=== PATIENT | female | born 1950 | race Caucasian/White ===

== ENCOUNTER 2017-02-19 07:03 | Day surgery (SDC) | payer OTHER ==
--- NOTE | ~2017-02-19 | EGD ---
EGD REPORT [facility] [address] [address] NAME: CLAIRE GROVES : [birth year] STATUS : REG [facility]#: [id number] AGE: 66 ADM/REG DATE : 02/19/17 MR#: [id number] REPORT SERV DATE: 02/19/17 DICTATED BY: QUINCY CROUCH DATE: 02/19/17 REPORT STATUS : Draft [facility] DATE: 02/19/17 Endoscopy Center Patient Name: Claire Groves Date of : 1950 Attending MD: QUINCY CROUCH MD Procedure Date No Time: 02/19/2017 Procedure: Colonoscopy Indications: Surveillance: Personal history of adenomatous polyps on last colonoscopy 3 years ago Referring MD: JOSE VINCENT Medicines: Propofol per Anesthesia Complications: No immediate complications. Procedure: Pre-Anesthesia Assessment: - ASA Grade Assessment: III - A patient with severe systemic disease. After I obtained informed consent, the scope was passed under direct vision. Throughout the procedure, the patient's blood pressure, pulse, and oxygen saturations were monitored continuously. The CF [id number] was introduced through the anus and advanced to the terminal ileum. The colonoscopy was performed without difficulty. The patient tolerated the procedure well. The quality of the bowel preparation was good. Findings: The perianal and digital rectal examinations were normal. The terminal ileum appeared normal. The colon (entire examined portion) appeared normal. A sessile polyp was found in the cecum. The polyp was 4 mm in size. The polyp was removed with a cold biopsy forceps. Resection and retrieval were complete. Two sessile polyps were found in the ascending colon. The polyps were 2 to 4 mm in size. These polyps were removed with a cold biopsy forceps. Resection and retrieval were complete. A sessile polyp was found in the transverse colon. The polyp was 3 mm in size. The polyp was removed with a cold biopsy forceps. Resection and retrieval were complete. A sessile polyp was found in the descending colon. The polyp was 3 mm in size. The polyp was removed with a cold biopsy forceps. Resection and retrieval were complete. Multiple small and large-mouthed diverticula were found in the recto-sigmoid colon and in the sigmoid colon. Non-bleeding internal hemorrhoids were found during retroflexion and were mild, small and Grade I (internal hemorrhoids that do not prolapse). EGD REPORT [address] [place]. [address] NAME: CLAIRE GROVES : [birth year] STATUS : [facility]#: [id number] AGE: 66 ADM/REG DATE : 02/19/17 MR#: [id number] REPORT SERV DATE: 02/19/17 DICTATED BY: QUINCY CROUCH DATE: 02/19/17 REPORT STATUS : Draft TRANSCRIBED BY: [email or web address] DATE: 02/19/17 Impression: - The examined portion of the ileum was normal. - The entire examined colon is normal. - One 4 mm polyp in the cecum. Resected and retrieved. - Two 2 to 4 mm polyps in the ascending colon. Resected and retrieved. - One 3 mm polyp in the transverse colon. Resected and retrieved. - One 3 mm polyp in the descending colon. Resected and retrieved. - Diverticulosis in the recto-sigmoid colon and in the sigmoid colon. - Non-bleeding internal hemorrhoids. Recommendation: - Patient has a contact number available for emergencies. The signs and symptoms of potential delayed complications were discussed with the patient. Return to normal activities tomorrow. Written discharge instructions were provided to the patient. - diet is clear liquid today, full liquid tomorrow, soft mushy food the next day, and resume usual diet the day after that. - Continue present medications. - Repeat colonoscopy in 3 - 5 years for surveillance based on pathology results. - Return to my office as previously scheduled. - Discharge patient to home. Procedure Code(s): --- Professional --- 62373, Colonoscopy, flexible, proximal to splenic flexure; with biopsy, single or multiple Diagnosis Code(s): --- Professional --- K64.0, First degree hemorrhoids K57.30, Diverticulosis of large intestine without perforation or abscess without bleeding D12.0, Benign neoplasm of cecum D12.2, Benign neoplasm of ascending colon D12.3, Benign neoplasm of transverse colon D12.4, Benign neoplasm of descending colon Z86.010, Personal history of colonic polyps CPT copyright 2013 [employer]. All rights reserved. The codes documented in this report are preliminary and upon belt notcher review may be revised to meet current compliance requirements. EGD REPORT [facility] [address] [address] NAME: CLAIRE GROVES : [birth year] STATUS : [facility]#: [id number] AGE: 66 ADM/REG DATE : 02/19/17 MR#: [id number] REPORT SERV DATE: 02/19/17 DICTATED BY: QUINCY CROUCH DATE: 02/19/17 REPORT STATUS : Draft TRANSCRIBED BY: [employer] [facility] DATE: 02/19/17 Quincy Crouch MD QUINCY CROUCH MD 02/19/2017 11:29 AM This report has been signed electronically. Number of Addenda: 0 Note Initiated On: 02/19/2017 8:41 AM Scope Withdrawal Time 0 hours 24 minutes 49 seconds [address] [id number]
--- NOTE | ~2017-02-19 | EGD ---
EGD REPORT [facility] [address] [address] NAME: CLAIRE GROVES : [birth year] STATUS : REG [facility] [place] [place] PAT#: [id number] AGE: 66 ADM/REG DATE : 02/19/17 MR#: [id number] REPORT SERV DATE: 02/19/17 DICTATED BY: QUINCY CROUCH DATE: 02/19/17 REPORT STATUS : Draft [facility]: [facility] DATE: 02/19/17 Endoscopy Center Patient Name: Claire Groves Date of : 1950 Attending MD: QUINCY CROUCH MD Procedure Date No Time: 02/19/2017 Procedure: Upper GI endoscopy Indications: Epigastric abdominal pain, Dysphagia, Heartburn Referring MD: JOSE VINCENT Medicines: Propofol per Anesthesia Complications: No immediate complications. Procedure: Pre-Anesthesia Assessment: - ASA Grade Assessment: III - A patient with severe systemic disease. After obtaining informed consent, the endoscope was passed under direct vision. Throughout the procedure, the patient's blood pressure, pulse, and oxygen saturations were monitored continuously. The GIF [id number] was introduced through the mouth, and advanced to the third part of duodenum. The upper GI endoscopy was accomplished without difficulty. The patient tolerated the procedure well. Findings: Non-severe esophagitis with no bleeding was found in the entire esophagus. Biopsies were taken with a cold forceps for histology. Done after dilation No endoscopic abnormality was evident in the esophagus to explain the patient's complaint of dysphagia. It was decided, however, to proceed with dilation. A guidewire was placed and the scope was withdrawn. Dilation was performed with a Savary dilator with mild resistance at 60 Fr. The esophagus looked satisfactory post dilation A small hiatus hernia was present. Seen on retroflexion, done prior to dilation Diffuse mild inflammation characterized by congestion (edema) and erythema was found in the entire examined stomach. Biopsies were taken with a cold forceps for Helicobacter pylori testing. One 6 mm sessile polyp with no bleeding and stigmata of recent bleeding was found in the gastric body. The polyp was removed with a hot snare. Resection and retrieval were complete. The examined duodenum was normal. Biopsies were taken with a cold forceps for evaluation of celiac disease. And giardia, whipple's disease, and enteritis Impression: - Non-severe reflux esophagitis. Biopsied. EGD REPORT [address] [place]. [address] NAME: CLAIRE GROVES : [birth year] STATUS : REG [facility] [place] [place] PAT#: [id number] AGE: 66 ADM/REG DATE : 02/19/17 MR#: [id number] REPORT SERV DATE: 02/19/17 DICTATED BY: QUINCY CROUCH DATE: 02/19/17 REPORT STATUS : Draft TRANSCRIBED BY: [employer] [facility] DATE: 02/19/17 - No endoscopic esophageal abnormality to explain patient's dysphagia. Esophagus dilated. Dilated. - Hiatus hernia. - Gastritis. Biopsied. - One gastric polyp. Resected and retrieved. - Normal examined duodenum. Biopsied. Recommendation: - Patient has a contact number available for emergencies. The signs and symptoms of potential delayed complications were discussed with the patient. Return to normal activities tomorrow. Written discharge instructions were provided to the patient. - diet is clear liquid today, full liquid tomorrow, soft mushy food the next day, and resume usual diet the day after that. - Await pathology results. - Continue present medications. - Use Dexilant (dexlansoprazole) 60 mg PO BID. - take 30-60 minutes before breakfast and supper - Return to my office as previously scheduled. - Discharge patient to home. Procedure Code(s): --- Professional --- 68256, Esophagogastroduodenoscopy, flexible, transoral; with removal of tumor(s), polyp(s), or other lesion(s) by snare technique 59941, Esophagogastroduodenoscopy, flexible, transoral; with insertion of guide wire followed by passage of dilator(s) through esophagus over guide wire 40874, 59, Esophagogastroduodenoscopy, flexible, transoral; with biopsy, single or multiple Diagnosis Code(s): --- Professional --- K21.0, Gastro-esophageal reflux disease with esophagitis R13.10, Dysphagia, unspecified K44.9, Diaphragmatic hernia without obstruction or gangrene K29.70, Gastritis, unspecified, without bleeding K31.7, Polyp of stomach and duodenum R10.13, Epigastric pain R12, Heartburn CPT copyright 2013 [employer]. All rights reserved. The codes documented in this report are preliminary and upon yolk spray drier review may be revised to meet current compliance requirements. EGD REPORT [facility] [address] [address] NAME: CLAIRE GROVES : [birth year] STATUS : REG [facility] [place] [place] PAT#: [id number] AGE: 66 ADM/REG DATE : 02/19/17 MR#: [id number] REPORT SERV DATE: 02/19/17 DICTATED BY: QUINCY CROUCH DATE: 02/19/17 REPORT STATUS : Draft TRANSCRIBED BY: [employer] DATE: 02/19/17 Quincy Crouch MD QUINCY CROUCH MD 02/19/2017 11:26 AM This report has been signed electronically. Number of Addenda: 0 Note Initiated On: 02/19/2017 8:42 AM Scope Withdrawal Time 0 hours 0 minutes 0 seconds [address] [place] [address]
[~2017-02-19 07:03] MED LIST: ADVAIR100 INH; ALDACTONE PO; AMBIEN CR PO; AMBIEN CR12.5 MG PO; AMIT100 PO; AMIT50 PO; AMITIZA8 MCG PO; ASAB PO; ASABAYER PO; Amitiza PO; BENTYL20 PO; BISR PR; BIST PO; CARDU2 PO; CARDU4 PO; CELEXA20 PO; DEXILANT PO; ENULOSE PO; FLEX PO; HYDROCHLOROT25 MG PO; KAPIDEX60 MG PO; KLONO1 PO; KLOR-CON M2020 MEQ PO; L20 PO; L40 PO; LASIX PO; LEVOTHYROXIN125 MCG PO; LEVOTHYROXINE PO; MERIBIN5 MG PO; MSCONT15 PO; NEXIUM40 PO; NORCO1 TA1 PO; PR25 PO; PREM625 PO; PRILOSEC40 MG PO; PRIMALEV PO; PRIN2.5 PO; PROAIR HFA INH; SPIRO25 PO; SUCR PO; SYMBICORT 160/41 INH INH; SYN.15 PO; SYN1 PO; SYN112 PO; SYNTHROID200 MCG PO; TEARS NATURA OP; ULTRAM50 PO; VESICARE10 MG PO; VITC500 PO; VITD PO; XARELTO15 MG PO; XARELTO20 MG PO; ZANAFLEX 4 MG TA4 MG PO; ZANTAC150 MG PO; ZESTRIL10 MG PO; ZOCOR40 PO; ZOL50 PO
== END 2017-02-19 23:59 | disposition home health service (06) ==
LOC: DMU 07:03
PROVIDERS: Internal Medicine Gastroenterology
PROC: 0D758ZZ Dilation of Esophagus, Via Natural or Artificial Opening Endoscopic (ICD-10-PCS; 2017-02-19)
PROC: 0DBH8ZX Excision of Cecum, Via Natural or Artificial Opening Endoscopic, Diagnostic (ICD-10-PCS; 2017-02-19)
PROC: 0DBM8ZX Excision of Descending Colon, Via Natural or Artificial Opening Endoscopic, Diagnostic (ICD-10-PCS; 2017-02-19)
PROC: 0DBL8ZX Excision of Transverse Colon, Via Natural or Artificial Opening Endoscopic, Diagnostic (ICD-10-PCS; 2017-02-19)
PROC: 0DBK8ZX Excision of Ascending Colon, Via Natural or Artificial Opening Endoscopic, Diagnostic (ICD-10-PCS; 2017-02-19)
PROC: 0DB58ZX Excision of Esophagus, Via Natural or Artificial Opening Endoscopic, Diagnostic (ICD-10-PCS; principal; 2017-02-19 08:30)
PROC: 0DB98ZX Excision of Duodenum, Via Natural or Artificial Opening Endoscopic, Diagnostic (ICD-10-PCS; 2017-02-19 08:30)
PROC: 0DB68ZX Excision of Stomach, Via Natural or Artificial Opening Endoscopic, Diagnostic (ICD-10-PCS; 2017-02-19 08:30)
PROC: 0DB68ZZ Excision of Stomach, Via Natural or Artificial Opening Endoscopic (ICD-10-PCS; 2017-02-19 08:30)
DX: D12.3 Benign neoplasm of transverse colon (principal); D12.4 Benign neoplasm of descending colon; K31.7 Polyp of stomach and duodenum; K44.9 Diaphragmatic hernia without obstruction or gangrene; K21.0 Gastro-esophageal reflux disease with esophagitis; I10 Essential (primary) hypertension; E78.00 Pure hypercholesterolemia, unspecified; E03.9 Hypothyroidism, unspecified; E66.01 Morbid (severe) obesity due to excess calories; K64.0 First degree hemorrhoids; K57.30 Diverticulosis of large intestine without perforation or abscess without bleeding; Z86.010 Personal history of colon polyps; Z88.5 Allergy status to narcotic agent; Z88.8 Allergy status to other drugs, medicaments and biological substances; Z87.891 Personal history of nicotine dependence; M19.90 Unspecified osteoarthritis, unspecified site; Z90.710 Acquired absence of both cervix and uterus; F32.9 Major depressive disorder, single episode, unspecified; Z90.49 Acquired absence of other specified parts of digestive tract; Z90.711 Acquired absence of uterus with remaining cervical stump
CPT/HCPCS: 88305; J2405